=== PATIENT | male | born 1950 | race Caucasian/White ===

== ENCOUNTER → 2021-04-17 | Outpatient (CLI) | payer MEDICARE ==
[~2021-04-17] VITALS: Ht 175.3 cm; Wt 81.6 kg
[~2021-04-17] MED LIST: AEROCHAMBER1 EA XX; ASPIRIN325 MG PO; BROVANA15 MCG/2 M INH; CATAPRES 0.1MG0.1 MG PO; FLONASE 0.05% N16 GM; LEVAQUIN TAB 5500 MG PO; LISINOPRIL20 MG PO; MESTINON60 MG PO; NEBULIZER INH; NORCO 7.5-3251 EACH PO; OMEPRAZOLE40 MG PO; OXYCODONE HCL10 MG PO; PREDNISONE 20 M20 MG GT; PREDNISONE5 MG PO; PRELONE SY15 MG/5 ML PO; RANITIDINE HCL300 MG PO; ROPINIROLE HCL4 MG PO; SYMBICORT 160-1 INHA INH; TRAZODONE HCL100 MG PO; ULTRAM50 MG PO; VENTOLIN HFA 66.7 GM INH; ZANAFLEX 4 MG TA4 MG PO
[2021-04-17 08:02] LABS: HEMOGLOBIN 13.6 gm/dl (14.0-17.5); RED BLOOD COUNT 4.68 M/UL (4.20-5.50); WHITE BLOOD COUNT 8.7 K/UL (4.5-11.0)
[2021-04-17 08:17] LABS: BUN/CREATININE RATIO 20 (0-10)
== END ==
LOC: OPSV 07:00
PROVIDERS: Student in an Organized Health Care Education/Training Program
DX: G70.00 Myasthenia gravis without (acute) exacerbation (principal); J43.9 Emphysema, unspecified; R13.19 Other dysphagia; Z79.51 Long term (current) use of inhaled steroids; Z79.52 Long term (current) use of systemic steroids
CPT/HCPCS: 36415; 80048; 85027; 96365; 96366; J1568

== ENCOUNTER 2021-06-22 18:41 | Inpatient (IN) | payer MEDICARE, OTHER ==
[~2021-06-22] VITALS: Ht 175.3 cm; Wt 81.4 kg
[~2021-06-22 18:41] MED LIST changes: -ASPIRIN325 MG PO; -LISINOPRIL20 MG PO; -MESTINON60 MG PO; -NORCO 7.5-3251 EACH PO; -PREDNISONE5 MG PO; -TRAZODONE HCL100 MG PO; -ULTRAM50 MG PO
[2021-06-22 20:55] LABS: HEMOGLOBIN 13.1 gm/dl (14.0-17.5); RED BLOOD COUNT 4.52 M/UL (4.20-5.50); WHITE BLOOD COUNT 8.8 K/UL (4.5-11.0)
[2021-06-22 21:22] LABS: BUN/CREATININE RATIO 23 (0-10)
[2021-06-23] MEDS ORDERED: BUSPIRONE HCL30 MG PO (01:16)
[2021-06-23] MEDS ORDERED: CLONIDINE HCL0.1 MG PO (01:17)
[2021-06-23] MEDS ORDERED: MYCOPHENOLATE250 MG PO (01:25)
[2021-06-23] MEDS ORDERED: CYCLOBENZAPRINE10 MG PO (01:26)
[2021-06-23] MEDS ORDERED: VALIUM5 MG PO (01:26)
[2021-06-23] MEDS ORDERED: IPRAT-ALBUT 0.5-3 ML INH (01:27)
[2021-06-23] MEDS ORDERED: MYSOLINE50 MG PO (01:28)
[2021-06-23 06:18] LABS: HEMOGLOBIN 12.7 gm/dl (14.0-17.5); RED BLOOD COUNT 4.39 M/UL (4.20-5.50); WHITE BLOOD COUNT 6.9 K/UL (4.5-11.0)
[2021-06-23 06:34] LABS: BUN/CREATININE RATIO 20 (0-10)
[2021-06-23] MEDS ORDERED: TRAZODONE HCL100 MG PO (06:46)
[2021-06-23] MEDS ORDERED: LISINOPRIL20 MG PO (06:47)
[2021-06-23] MEDS ORDERED: PREDNISONE5 MG PO (09:37)
[2021-06-23] MEDS ORDERED: MESTINON60 MG PO (09:40)
[2021-06-23] MEDS ORDERED: HYDROCODON-ACE1 EAC6 PO (12:12)
[2021-06-23] MEDS ORDERED: ASPIRIN EC81 MG PO (12:15)
[2021-06-23] MEDS ORDERED: ULTRAM50 MG PO (12:17)
[2021-06-24 06:26] LABS: HEMOGLOBIN 12.2 gm/dl (14.0-17.5); RED BLOOD COUNT 4.24 M/UL (4.20-5.50); WHITE BLOOD COUNT 5.6 K/UL (4.5-11.0)
[2021-06-24 06:57] LABS: BUN/CREATININE RATIO 22 (0-10)
== END 2021-06-24 13:54 | disposition home health service (06) | DRG 57 ==
LOC: ER1 18:41 → CDU 22:43 → M/S 22:43
PROVIDERS: Family Medicine; Internal Medicine; Physician Assistant; ADMIT Internal Medicine
DX: G70.01 Myasthenia gravis with (acute) exacerbation (principal); F11.20 Opioid dependence, uncomplicated; J96.10 Chronic respiratory failure, unspecified whether with hypoxia or hypercapnia; J44.9 Chronic obstructive pulmonary disease, unspecified; F17.210 Nicotine dependence, cigarettes, uncomplicated; Z20.822 Contact with and (suspected) exposure to COVID-19; J64 Unspecified pneumoconiosis; G89.29 Other chronic pain; I10 Essential (primary) hypertension; M51.36 Other intervertebral disc degeneration, lumbar region; M54.9 Dorsalgia, unspecified; Z79.52 Long term (current) use of systemic steroids; Z85.51 Personal history of malignant neoplasm of bladder; Z83.3 Family history of diabetes mellitus; Z98.890 Other specified postprocedural states; Z99.81 Dependence on supplemental oxygen; Z88.2 Allergy status to sulfonamides; Z88.1 Allergy status to other antibiotic agents; Z88.8 Allergy status to other drugs, medicaments and biological substances; Z79.82 Long term (current) use of aspirin
CPT/HCPCS: 36415; 71046; 80048; 80053; 82550; 82553; 82607; 83735; 83874; 84100; 84439; 84443; 84484; 85025; 85610; 85652; 93005; 94640; 94664; 94760; 97161; 97530; 99285; J1568; J1650; J7517; U0002

== ENCOUNTER 2021-06-27 10:39 | Emergency (ER) | payer MEDICARE, SELFPAY ==
[~2021-06-27 10:39] MED LIST changes: +ASPIRIN EC81 MG PO; +BUSPIRONE HCL30 MG PO; +CLONIDINE HCL0.1 MG PO; +CYCLOBENZAPRINE10 MG PO; +HYDROCODON-ACE1 EAC6 PO; +IPRAT-ALBUT 0.5-3 ML INH; +LISINOPRIL20 MG PO; +MESTINON60 MG PO; +MYCOPHENOLATE250 MG PO; +MYSOLINE50 MG PO; +PREDNISONE5 MG PO; +TRAZODONE HCL100 MG PO; +ULTRAM50 MG PO; +VALIUM5 MG PO
[2021-06-27 13:35] LABS: HEMOGLOBIN 13.8 gm/dl (14.0-17.5); RED BLOOD COUNT 4.69 M/UL (4.20-5.50); WHITE BLOOD COUNT 9.9 K/UL (4.5-11.0)
[2021-06-27 13:58] LABS: BUN/CREATININE RATIO 33 (0-10)
== END 2021-06-27 15:57 | disposition home or self-care (01) ==
LOC: ER1 10:39
PROVIDERS: Family Medicine
DX: S40.811A Abrasion of right upper arm, initial encounter (principal); J43.9 Emphysema, unspecified; M48.55XA Collapsed vertebra, not elsewhere classified, thoracolumbar region, initial encounter for fracture; R91.8 Other nonspecific abnormal finding of lung field; M51.36 Other intervertebral disc degeneration, lumbar region; W20.1XXA Struck by object due to collapse of building, initial encounter; Z23 Encounter for immunization
CPT/HCPCS: 36600; 70450; 71045; 72125; 72128; 72131; 80053; 82550; 82553; 82803; 83874; 84484; 85025; 90471; 90715; 93005; 94664; 94760; 99284

== ENCOUNTER 2021-10-15 17:56 | Emergency (ER) | payer MEDICARE ==
[2021-10-15 18:55] LABS: HEMOGLOBIN 11.1 gm/dl (14.0-17.5); RED BLOOD COUNT 4.03 M/UL (4.20-5.50); WHITE BLOOD COUNT 10.1 K/UL (4.5-11.0)
[2021-10-15 19:24] LABS: BUN/CREATININE RATIO 24 (0-10)
[2021-10-15] MEDS ORDERED: K-TAB ER10 MEQ PO (21:51)
[2021-10-15] MEDS ORDERED: LASIX20 MG PO (21:51)
[2021-10-15] MEDS ORDERED: CEFUROXIME500 MG PO (21:54)
== END 2021-10-15 22:09 | disposition home or self-care (01) ==
LOC: ER1 17:56
PROVIDERS: Physician Assistant
DX: N39.0 Urinary tract infection, site not specified (principal); R06.00 Dyspnea, unspecified; R60.0 Localized edema; E78.5 Hyperlipidemia, unspecified; I10 Essential (primary) hypertension; Z88.2 Allergy status to sulfonamides; Z88.6 Allergy status to analgesic agent; K21.9 Gastro-esophageal reflux disease without esophagitis; Z87.442 Personal history of urinary calculi; Z85.51 Personal history of malignant neoplasm of bladder
CPT/HCPCS: 71045; 80053; 81001; 82550; 82553; 83874; 83880; 84484; 85025; 87086; 93005; 96374; 99285; J1940

== ENCOUNTER 2022-01-03 18:38 | Inpatient (IN) | payer MEDICARE ==
[~2022-01-03] VITALS: Ht 175.3 cm; Wt 73.5 kg
[~2022-01-03 18:38] MED LIST changes: -ASPIRIN EC81 MG PO; +CEFUROXIME500 MG PO; -HYDROCODON-ACE1 EAC6 PO; +K-TAB ER10 MEQ PO; +LASIX20 MG PO; -MYCOPHENOLATE250 MG PO; -ROPINIROLE HCL4 MG PO
[2022-01-03 19:03] LABS: HEMOGLOBIN 12.3 gm/dl (14.0-17.5); WHITE BLOOD COUNT 10.7 K/UL (4.5-11.0)
[2022-01-03 19:59] LABS: BUN/CREATININE RATIO 23 (0-10)
[2022-01-04] MEDS ORDERED: MYCOPHENOLATE500 MG PO (01:25)
[2022-01-04] MEDS ORDERED: ROPINIROLE HCL4 MG PO (06:42)
[2022-01-04] MEDS ORDERED: ESCITALOPRAM OX10 MG PO (10:51)
[2022-01-04] MEDS ORDERED: DULOXETINE HCL30 MG PO (10:52)
[2022-01-04] MEDS ORDERED: BREO ELLIPTA 21 EACH INH (10:55)
[2022-01-04] MEDS ORDERED: PREDNISONE 10 M10 MG PO (11:03)
[2022-01-04] MEDS ORDERED: ACIDOPHILUS PR1 EAC2 PO (11:05)
[2022-01-04] MEDS ORDERED: MELATONIN3 MG PO (11:06)
[2022-01-04] MEDS ORDERED: VITAMIN B-121000 MCG PO (11:07)
[2022-01-04] MEDS ORDERED: GUAIFENESIN400 MG PO (11:08)
[2022-01-04] MEDS ORDERED: VITAMIN D3125 MCG PO (11:08)
[2022-01-04] MEDS ORDERED: ALKA-SELTZER H1 EACH PO (11:09)
[2022-01-04] MEDS ORDERED: HYDROCODON-ACE1 EAC2 PO (12:12)
[2022-01-04] MEDS ORDERED: ASPIRIN CHEWABL81 MG PO (12:15)
[2022-01-05 02:06] LABS: WHITE BLOOD COUNT 10.9 K/UL (4.5-11.0)
[2022-01-05 02:08] LABS: HEMOGLOBIN 10.3 gm/dl (14.0-17.5); RED BLOOD COUNT 4.17 M/UL (4.20-5.50)
[2022-01-05 02:42] LABS: BUN/CREATININE RATIO 16 (0-10)
--- NOTE | 2022-01-05 13:13 | NUR ---
PATIENT AWAKENS WITH COMPLAINTS OF PAIN. HIS O2 SAT BEGINS TO DROP, PATIENT IS PRESENTLY ON AN AIRVO. PATIENT GIVEN PAIN MEDICATION HE CRIES OUT IN PAIN WHEN HE IS MOVED. UPON STRAIGHTENING PATIEN DISCOVERED A HEMATOMA ON THE RIGHT BACK, PATIENT IS MORE COMFORTABLE AFTER PAIN MEDICATION AND REQUESTS BIPAP. INFORM MD OF HEMATOMA.
[2022-01-06 02:54] LABS: HEMOGLOBIN 10.5 gm/dl (14.0-17.5); RED BLOOD COUNT 4.2 M/UL (4.20-5.50); WHITE BLOOD COUNT 9.7 K/UL (4.5-11.0)
[2022-01-06 03:19] LABS: BUN/CREATININE RATIO 23 (0-10)
[2022-01-06 10:19] LABS: BORDETELLA PARAPERTUSSIS Not Detected (Not Detectd); BORDETELLA PERTUSSIS Not Detected (Not Detectd); CHLAMYDIA PNEUMONIAE Not Detected (Not Detectd); CORONAVIRUS HKU1 Not Detected (Not Detectd); CORONAVIRUS NL63 Not Detected (Not Detectd); CORONAVIRUS OC43 Not Detected (Not Detectd); CORONOAVIRUS 229E Not Detected (Not Detectd); HUMAN METAPNEUMOVIRUS Not Detected (Not Detectd); HUMAN RHINOVIRUS/ENTEROVIRUS Not Detected (Not Detectd); INFLUENZA A Not Detected (Not Detectd); INFLUENZA B Not Detected (Not Detectd); MYCOPLASMA PNEUMONIAE Not Detected (Not Detectd); PARAINFLUENZA VIRUS 1 Not Detected (Not Detectd); PARAINFLUENZA VIRUS 2 Not Detected (Not Detectd); PARAINFLUENZA VIRUS 3 Not Detected (Not Detectd); PARAINFLUENZA VIRUS 4 Not Detected (Not Detectd); RESPIRATORY SYNCYTIAL VIRUS Not Detected (Not Detectd)
[2022-01-06 11:21] LABS: SARS-CoV-2 NOT DETECTED (Not Detectd)
[2022-01-07 05:38] LABS: HEMOGLOBIN 10.6 gm/dl (14.0-17.5); RED BLOOD COUNT 4.24 M/UL (4.20-5.50); WHITE BLOOD COUNT 7.2 K/UL (4.5-11.0)
[2022-01-07 06:04] LABS: BUN/CREATININE RATIO 36 (0-10)
--- NOTE | 2022-01-07 09:45 | NUR ---
DR BARAKAT IN PT ROOM TO DISCUSS PT STATUS OF COLLAPSED LUNG, POSSIBLE BRONCHOSCOPY AND/OR INTUBATION. PT DENIED ANY TREATMENT FOR THIS, FAMILY AGREED. FAMILY DISCUSSING COMFORT MEASURES. WILL LET US KNOW WHEN THEY WANT TO START OR WHEN PT STARTS STRUGGLING
[2022-01-08 05:34] LABS: HEMOGLOBIN 10.4 gm/dl (14.0-17.5); RED BLOOD COUNT 4.21 M/UL (4.20-5.50); WHITE BLOOD COUNT 5.1 K/UL (4.5-11.0)
[2022-01-08 06:37] LABS: BUN/CREATININE RATIO 43 (0-10)
[2022-01-08 15:47] LABS: BODY FLUID SOURCE BRONCHIAL LAVAGE; RBC (MANUAL) 1605; WBC (MANUAL) 602.5
[2022-01-08 15:48] LABS: MONONUCLEAR CELLS 75 %; POLYMORPHONUCLEAR 25 %
[2022-01-09 05:11] LABS: HEMOGLOBIN 10.3 gm/dl (14.0-17.5); RED BLOOD COUNT 4.17 M/UL (4.20-5.50)
[2022-01-09 05:19] LABS: WHITE BLOOD COUNT 10.5 K/UL (4.5-11.0)
[2022-01-09 05:39] LABS: BUN/CREATININE RATIO 42 (0-10)
[2022-01-09 14:03] LABS: BODY FLUID SOURCE PLEURAL; MONONUCLEAR CELLS 33.3 (75-100); POLYMORPHONUCLEAR % 66.7 (0-25); RBC (AUTOMATED) 300 (0-100000); WBC (AUTOMATED) 15 (0-500)
[2022-01-09 14:22] LABS: LDH, BODY FLUID 124 U/L; TOTAL PROTEIN, BODY FLUID 1.8 gm/dL
[2022-01-10 14:01] LABS: RED BLOOD COUNT 4.08 M/UL (4.20-5.50); WHITE BLOOD COUNT 10.1 K/UL (4.5-11.0)
[2022-01-10 14:23] LABS: BUN/CREATININE RATIO 45 (0-10)
== END 2022-01-10 21:05 | disposition expired | DRG 208 ==
LOC: ER1 18:38 → CDU 22:40 → CCU 01-04 18:40 → PROG CARE 01-04 21:56 → CCU 01-05 10:38 → PROG CARE 01-05 10:38 → CCU 01-08 12:32
PROVIDERS: Emergency Medicine; Internal Medicine; Internal Medicine Infectious Disease; ADMIT Internal Medicine
PROC: B24BZZZ Ultrasonography of Heart with Aorta (ICD-10-PCS; principal; 2022-01-04)
PROC: 5A0945A Assistance with Respiratory Ventilation, 24-96 Consecutive Hours, High Flow/Velocity Cannula (ICD-10-PCS; 2022-01-04)
PROC: 5A09357 Assistance with Respiratory Ventilation, Less than 24 Consecutive Hours, Continuous Positive Airway Pressure (ICD-10-PCS; 2022-01-06)
PROC: 5A1945Z Respiratory Ventilation, 24-96 Consecutive Hours (ICD-10-PCS; 2022-01-08)
PROC: 0B9J8ZZ Drainage of Left Lower Lung Lobe, Via Natural or Artificial Opening Endoscopic (ICD-10-PCS; 2022-01-08)
PROC: 0BH17EZ Insertion of Endotracheal Airway into Trachea, Via Natural or Artificial Opening (ICD-10-PCS; 2022-01-08)
PROC: 0W9B3ZZ Drainage of Left Pleural Cavity, Percutaneous Approach (ICD-10-PCS; 2022-01-09)
PROC: BB4BZZZ Ultrasonography of Pleura (ICD-10-PCS; 2022-01-09)
DX: S27.0XXA Traumatic pneumothorax, initial encounter (principal); J96.21 Acute and chronic respiratory failure with hypoxia; J96.22 Acute and chronic respiratory failure with hypercapnia; J18.0 Bronchopneumonia, unspecified organism; Z20.822 Contact with and (suspected) exposure to COVID-19; Z66 Do not resuscitate; Z51.5 Encounter for palliative care; A41.9 Sepsis, unspecified organism; G70.01 Myasthenia gravis with (acute) exacerbation; S22.41XA Multiple fractures of ribs, right side, initial encounter for closed fracture; J98.19 Other pulmonary collapse; J44.0 Chronic obstructive pulmonary disease with (acute) lower respiratory infection; F11.20 Opioid dependence, uncomplicated; J44.1 Chronic obstructive pulmonary disease with (acute) exacerbation; W18.30XA Fall on same level, unspecified, initial encounter; I27.20 Pulmonary hypertension, unspecified; F10.10 Alcohol abuse, uncomplicated; M51.36 Other intervertebral disc degeneration, lumbar region; M19.90 Unspecified osteoarthritis, unspecified site; I10 Essential (primary) hypertension; J60 Coalworker's pneumoconiosis; R53.81 Other malaise; I07.1 Rheumatic tricuspid insufficiency; Y92.091 Bathroom in other non-institutional residence as the place of occurrence of the external cause; Y93.9 Activity, unspecified; Z99.81 Dependence on supplemental oxygen; Z91.81 History of falling; Z87.442 Personal history of urinary calculi; Z88.6 Allergy status to analgesic agent; Z88.1 Allergy status to other antibiotic agents; Z88.2 Allergy status to sulfonamides; Z87.09 Personal history of other diseases of the respiratory system; Z98.84 Bariatric surgery status; Z98.890 Other specified postprocedural states; Z82.5 Family history of asthma and other chronic lower respiratory diseases; Z82.49 Family history of ischemic heart disease and other diseases of the circulatory system; Z80.0 Family history of malignant neoplasm of digestive organs; Z82.61 Family history of arthritis; Z87.01 Personal history of pneumonia (recurrent); Z85.51 Personal history of malignant neoplasm of bladder; Z83.3 Family history of diabetes mellitus; Z79.01 Long term (current) use of anticoagulants; Z79.82 Long term (current) use of aspirin; Z79.52 Long term (current) use of systemic steroids; Z93.0 Tracheostomy status
CPT/HCPCS: ECHO; 31500; 36415; 36600; 70450; 71045; 71260; 71275; 72125; 73030; 80053; 80202; 81001; 82150; 82550; 82553; 82803; 82945; 82962; 83615; 83735; 83874; 83880; 83986; 84100; 84157; 84484; 85025; 86140; 87015; 87070; 87116; 87205; 87206; 87252; 87633; 89051; 93005; 93306; 94002; 94003; 94640; 94660; 94664; 94760; 96372; 96374; 96375; 96376; 97110-GP-CQ; 97161; 99285; G0378; J0696; J1120; J1170; J1568; J1650; J1885; J1940; J1956; J2060; J2185; J2250; J2405; J2704; J2930; J3010; J3370; J7030; J7070; J7517; Q9967; U0002